=== PATIENT | female | born 1975 | race Asian ===

== ENCOUNTER 2017-01-09 11:48 | Emergency (ER) | payer OTHER ==
[~2017-01-09] VITALS: Ht 165.1 cm; Wt 56.5 kg
[2017-01-09 11:50] VITALS: TEMP 37; Ht 165.1 cm; Wt 56.5 kg
[2017-01-09] MEDS ORDERED: RABIES VACCINE (IMOVAX) HUMAN DIPL CELL 2.5 INTER.UNIT/ML SYR IM. ONE (12:15)
[2017-01-09] MEDS ORDERED: RABIES IMMUNE GLOBULIN (HUMAN) 150 INTER.UNIT/ML 2 ML VIAL IM. ONE (12:15)
--- NOTE | 2017-01-09 12:25 | EMERGENCY ROOM VISIT NOTE ---
ED Visit Note First contact with patient: 11:56 CHIEF COMPLAINT: Need rabies shots HISTORY OF PRESENT ILLNESS: This 41-year-old female presents the ER from [facility] for just the initial immunoglobulin and Imovax vaccine for rabies prophylaxis. The patient states that they found a bat in her house. She does not have any known bites but it was recommended that she goes through rabies prophylaxis. She went to [facility] but they were out of the immunoglobulins today told her to come here for that initial visit and then she will have her subsequent visits at [facility]. REVIEW OF SYSTEMS: 6 system review was performed and was negative unless stated otherwise in history of present illness. PMH: The patient is healthy; there is no significant medical or surgical history. SOCIAL HISTORY: Patient denies any tobacco or alcohol use. PHYSICAL EXAM: Vital Signs: Were reviewed Reviewed Nurse's notes. GENERAL: 41- year-old female appears in no acute distress. MENTAL Status: Alert and oriented 3. SKIN: Clear, no visible bites noted EMERGENCY DEPARTMENT COURSE: The patient was given rabies immune globulin and rabies vaccine, the former based on weight. She was discharged home in stable condition. DIAGNOSIS: Post exposure rabies prophylaxis DISCHARGE INSTRUCTIONS: Have the remainder of the vaccine series at [facility] as directed. Current/Historical Medications No Active Prescriptions or Reported Meds Allergies Coded Allergies: No Known Allergies (Unverified , 01/09/17) Vital Signs Date Time Temp Pulse Resp B/P (MAP) Pulse Ox O2 Delivery O2 Flow Rate FiO2 01/09/17 11:50 37.0 77 18 150/78 98 Room Air Departure Information Prescriptions No Active Prescriptions or Reported Meds Referrals [facility] (PCP) Patient Instructions [facility]
[2017-01-09 13:19] VITALS: BP 142/91; PULSE 87; O2SAT 97
== END 2017-01-09 13:20 | disposition home or self-care (01) ==
LOC: C.EDB 11:50 → C.EDD 13:20
DX: Z23 Encounter for immunization (principal); Z20.3 Contact with and (suspected) exposure to rabies